=== PATIENT | female | born 1980 | race Caucasian/White ===

== ENCOUNTER 2020-10-07 18:35 | Emergency (ER) | payer OTHER ==
[~2020-10-07 18:35] MED LIST: PREDNISONE20 MG PO; SYMBICORT 80-10.2 GM INH; VENTOLIN HFA 66.7 GM INH
[2020-10-07 19:42] LABS: HEMOGLOBIN 15.2 gm/dl (12.3-15.3); RED BLOOD COUNT 4.65 M/UL (4.00-5.10); WHITE BLOOD COUNT 5.4 K/UL (4.5-11.0)
[2020-10-07 20:23] LABS: BUN/CREATININE RATIO 15 (0-10)
== END 2020-10-07 23:05 | disposition left against medical advice (07) ==
LOC: ER1 18:35
PROVIDERS: Physician Assistant
DX: U07.1 COVID-19 (principal); I10 Essential (primary) hypertension; F17.200 Nicotine dependence, unspecified, uncomplicated; Z91.040 Latex allergy status
CPT/HCPCS: 80053; 82550; 82553; 83874; 84484; 85025; 85379; 93005; 99283

== ENCOUNTER 2020-10-10 09:16 | Observation (INO) | payer OTHER ==
[~2020-10-10] VITALS: Ht 175.3 cm; Wt 123.4 kg
[2020-10-10 11:47] LABS: HEMOGLOBIN 13.5 gm/dl (12.3-15.3); RED BLOOD COUNT 4.36 M/UL (4.00-5.10)
[2020-10-10 11:54] LABS: WHITE BLOOD COUNT 7.9 K/UL (4.5-11.0)
[2020-10-10 12:07] LABS: BUN/CREATININE RATIO 18 (0-10)
[2020-10-11 03:56] LABS: HEMOGLOBIN 13.5 gm/dl (12.3-15.3); RED BLOOD COUNT 4.17 M/UL (4.00-5.10); WHITE BLOOD COUNT 7.6 K/UL (4.5-11.0)
[2020-10-11 04:27] LABS: BUN/CREATININE RATIO 13 (0-10)
[2020-10-11] MEDS ORDERED: BRILINTA 90 MG90 MG PO (09:13)
[2020-10-11] MEDS ORDERED: ATORVASTATIN CA20 MG PO (09:13)
[2020-10-11] MEDS ORDERED: AMLODIPINE BESYL5 MG PO ×2 (09:13→10:36)
[2020-10-11] MEDS ORDERED: NICOTINE PATCH1 EAC5 TD ×2 (09:13→10:37)
[2020-10-11] MEDS ORDERED: NITROGLYCERIN0.4 MG SL ×2 (09:13→10:35)
[2020-10-11] MEDS ORDERED: FENOFIBRATE145 MG PO (09:13)
[2020-10-11] MEDS ORDERED: ASPIRIN EC81 MG PO ×2 (09:13→10:33)
[2020-10-11] MEDS ORDERED: LOPRESSOR 50 MG50 MG PO (09:13)
[2020-10-11] MEDS ORDERED: METOPROLOL SUCC25 MG PO (10:29)
[2020-10-11] MEDS ORDERED: LOPRESSOR 50 MG50 MG GT (10:33)
[2020-10-11] MEDS ORDERED: TRICOR 145 MG145 MG GT (10:34)
[2020-10-11] MEDS ORDERED: LIPITOR TAB 2020 MG PO (10:36)
[2020-10-11] MEDS ORDERED: BRILINTA90 MG PO (10:37)
== END 2020-10-11 11:49 | disposition home or self-care (01) ==
LOC: ER1 09:16 → PROG CARE 14:52 → CDU 14:52 → PROG CARE 14:52
PROVIDERS: Nurse Practitioner; ADMIT Internal Medicine Cardiovascular Disease
PROC: 027034Z Dilation of Coronary Artery, One Artery with Drug-eluting Intraluminal Device, Percutaneous Approach (ICD-10-PCS; principal; 2020-10-10)
PROC: 02703ZZ Dilation of Coronary Artery, One Artery, Percutaneous Approach (ICD-10-PCS; 2020-10-10)
PROC: B2111ZZ Fluoroscopy of Multiple Coronary Arteries using Low Osmolar Contrast (ICD-10-PCS; 2020-10-10)
DX: I25.110 Atherosclerotic heart disease of native coronary artery with unstable angina pectoris (principal); I77.1 Stricture of artery; I10 Essential (primary) hypertension; E78.5 Hyperlipidemia, unspecified; F17.210 Nicotine dependence, cigarettes, uncomplicated; F12.90 Cannabis use, unspecified, uncomplicated; E66.9 Obesity, unspecified; Z68.36 Body mass index [BMI] 36.0-36.9, adult; Z86.16 Personal history of COVID-19; Z91.040 Latex allergy status; Z79.82 Long term (current) use of aspirin; Z79.899 Other long term (current) drug therapy; Z23 Encounter for immunization
CPT/HCPCS: ECHO; 36415; 71045; 80048; 80053; 80061; 82550; 82553; 83036; 83874; 84484; 84703; 85025; 85347; 85379; 93005; 93306; 99152; 99153; 99283; 99285; C1725; C1769; C1874; C1887; C1894; C9600; G0378; J0461; J1644; J2250; J2370; J3010; J3246; J7040; Q9965; Q9967; U0002

== ENCOUNTER 2021-03-06 21:53 | Emergency (ER) | payer OTHER ==
[~2021-03-06 21:53] MED LIST changes: +AMLODIPINE BESYL5 MG PO; +ASPIRIN EC81 MG PO; +ATORVASTATIN CA20 MG PO; +BRILINTA 90 MG90 MG PO; +BRILINTA90 MG PO; +FENOFIBRATE145 MG PO; +LIPITOR TAB 2020 MG PO; +LOPRESSOR 50 MG50 MG GT; +LOPRESSOR 50 MG50 MG PO; +METOPROLOL SUCC25 MG PO; +NICOTINE PATCH1 EAC5 TD; +NITROGLYCERIN0.4 MG SL; +TRICOR 145 MG145 MG GT
[2021-03-06 22:38] LABS: HEMOGLOBIN 13.2 gm/dl (12.3-15.3); RED BLOOD COUNT 4.35 M/UL (4.00-5.10); WHITE BLOOD COUNT 8.2 K/UL (4.5-11.0)
[2021-03-06 23:12] LABS: BUN/CREATININE RATIO 17 (0-10)
== END 2021-03-07 01:06 | disposition home or self-care (01) ==
LOC: ER1 21:53
PROVIDERS: Physician Assistant
DX: R30.0 Dysuria (principal); R59.1 Generalized enlarged lymph nodes; R10.9 Unspecified abdominal pain; I25.2 Old myocardial infarction; F17.200 Nicotine dependence, unspecified, uncomplicated; Z91.040 Latex allergy status
CPT/HCPCS: 80053; 81001; 84703; 85025; 87086; 96374; 96375; 99284; J1885; J2270; J2405

== ENCOUNTER 2021-03-24 21:37 | Emergency (ER) | payer OTHER ==
[2021-03-24 22:07] LABS: HEMOGLOBIN 14.2 gm/dl (12.3-15.3); RED BLOOD COUNT 4.65 M/UL (4.00-5.10); WHITE BLOOD COUNT 8.7 K/UL (4.5-11.0)
[2021-03-24 23:09] LABS: BUN/CREATININE RATIO 13 (0-10)
== END 2021-03-25 02:30 | disposition left against medical advice (07) ==
LOC: ER1 21:37
PROVIDERS: Family Medicine
DX: R07.9 Chest pain, unspecified (principal); R06.02 Shortness of breath; Z20.822 Contact with and (suspected) exposure to COVID-19; R11.2 Nausea with vomiting, unspecified; Z91.040 Latex allergy status; Z95.1 Presence of aortocoronary bypass graft; F17.210 Nicotine dependence, cigarettes, uncomplicated
CPT/HCPCS: 0240U; 71045; 80053; 82550; 82553; 83874; 84484; 85025; 93005; 99283

== ENCOUNTER 2021-04-14 08:20 | Observation (INO) | payer OTHER ==
[~2021-04-14] VITALS: Ht 177.8 cm; Wt 113.4 kg
[~2021-04-14 08:20] MED LIST changes: -LOPRESSOR 50 MG50 MG GT; -TRICOR 145 MG145 MG GT
[2021-04-14 09:08] LABS: HEMOGLOBIN 12.2 gm/dl (12.3-15.3); WHITE BLOOD COUNT 7.9 K/UL (4.5-11.0)
[2021-04-14 09:36] LABS: BUN/CREATININE RATIO 15 (0-10)
[2021-04-14] MEDS ORDERED: LOPRESSOR 50 MG50 MG PO (10:33)
[2021-04-14] MEDS ORDERED: TRICOR 145 MG145 MG PO (10:34)
[2021-04-14] MEDS ORDERED: PROAIR HFA8.5 GM INH (12:40)
[2021-04-14] MEDS ORDERED: PLAVIX75 MG PO (12:41)
[2021-04-14] MEDS ORDERED: PROTONIX20 MG PO (12:41)
[2021-04-14] MEDS ORDERED: ALEVE220 MG PO (12:42)
[2021-04-15 03:56] LABS: HEMOGLOBIN 12.1 gm/dl (12.3-15.3); RED BLOOD COUNT 3.98 M/UL (4.00-5.10); WHITE BLOOD COUNT 8.6 K/UL (4.5-11.0)
[2021-04-15 04:13] LABS: BUN/CREATININE RATIO 16 (0-10)
[2021-04-15] MEDS ORDERED: ISOSORBIDE MONO30 MG PO (10:10)
[2021-04-15] MEDS ORDERED: BRILINTA 90 MG90 MG PO (10:11)
== END 2021-04-15 12:13 | disposition home or self-care (01) ==
LOC: ER1 08:20 → CDU 10:16 → MED SURG 4 16:07
PROVIDERS: Emergency Medicine; Physician Assistant Medical; ADMIT Internal Medicine
DX: I25.119 Atherosclerotic heart disease of native coronary artery with unspecified angina pectoris (principal); R07.81 Pleurodynia; Z20.822 Contact with and (suspected) exposure to COVID-19; I10 Essential (primary) hypertension; E78.5 Hyperlipidemia, unspecified; J45.909 Unspecified asthma, uncomplicated; F12.10 Cannabis abuse, uncomplicated; F17.210 Nicotine dependence, cigarettes, uncomplicated; I25.2 Old myocardial infarction; Z79.02 Long term (current) use of antithrombotics/antiplatelets; Z79.82 Long term (current) use of aspirin; Z79.899 Other long term (current) drug therapy; Z91.040 Latex allergy status; Z95.5 Presence of coronary angioplasty implant and graft
CPT/HCPCS: ECHO; 36415; 71045; 80048; 80053; 82550; 82553; 83735; 84484; 85025; 85027; 93005; 93306; 94664; 94760; 96374; 99285; G0378; J2270; U0002

== ENCOUNTER 2021-04-27 15:28 | Emergency (ER) | payer OTHER ==
[~2021-04-27 15:28] MED LIST changes: +ALEVE220 MG PO; +ISOSORBIDE MONO30 MG PO; +PLAVIX75 MG PO; +PROAIR HFA8.5 GM INH; +PROTONIX20 MG PO; +TRICOR 145 MG145 MG PO
[2021-04-27 17:22] LABS: HEMOGLOBIN 13.4 gm/dl (12.3-15.3); RED BLOOD COUNT 4.36 M/UL (4.00-5.10); WHITE BLOOD COUNT 8.1 K/UL (4.5-11.0)
[2021-04-27] MEDS ORDERED: HYDROCODON-ACE1 EAC4 PO (19:21)
[2021-04-27] MEDS ORDERED: ZOFRAN ODT 4 MG4 MG SL (19:21)
== END 2021-04-27 19:30 | disposition home or self-care (01) ==
LOC: ER1 15:28
PROVIDERS: Emergency Medicine
DX: N93.9 Abnormal uterine and vaginal bleeding, unspecified (principal); I25.2 Old myocardial infarction; I25.10 Atherosclerotic heart disease of native coronary artery without angina pectoris; F17.200 Nicotine dependence, unspecified, uncomplicated
CPT/HCPCS: 84703; 85025; 96374; 99284; J1170

== ENCOUNTER 2021-07-07 12:14 | Emergency (ER) | payer OTHER ==
[~2021-07-07 12:14] MED LIST changes: +HYDROCODON-ACE1 EAC4 PO; +ZOFRAN ODT 4 MG4 MG SL
[2021-07-07 14:31] LABS: RED BLOOD COUNT 3.99 M/UL (4.00-5.10); WHITE BLOOD COUNT 7.3 K/UL (4.5-11.0)
[2021-07-07 14:56] LABS: BUN/CREATININE RATIO 10 (0-10)
== END 2021-07-07 18:07 | disposition home or self-care (01) ==
LOC: ER1 12:14
PROVIDERS: Physician Assistant
DX: R60.0 Localized edema (principal); I25.2 Old myocardial infarction; J44.9 Chronic obstructive pulmonary disease, unspecified; F17.210 Nicotine dependence, cigarettes, uncomplicated; E78.5 Hyperlipidemia, unspecified; Z20.822 Contact with and (suspected) exposure to COVID-19; I10 Essential (primary) hypertension; Z95.5 Presence of coronary angioplasty implant and graft; Z91.010 Allergy to peanuts; Z88.8 Allergy status to other drugs, medicaments and biological substances
CPT/HCPCS: 0240U; 71045; 80053; 81001; 82550; 82553; 83605; 83690; 83880; 84484; 84703; 85025; 85379; 96374; 99285; J1885

== ENCOUNTER 2021-08-26 19:24 | Emergency (ER) | payer OTHER ==
[2021-08-26] MEDS ORDERED: HYDROCODON-ACE1 EAC4 PO (21:22)
== END 2021-08-26 21:40 | disposition home or self-care (01) ==
LOC: ER1 19:24
DX: M54.2 Cervicalgia (principal); R07.81 Pleurodynia; R51.9 Headache, unspecified; R07.9 Chest pain, unspecified; I11.9 Hypertensive heart disease without heart failure; E78.5 Hyperlipidemia, unspecified; F17.200 Nicotine dependence, unspecified, uncomplicated; Z79.02 Long term (current) use of antithrombotics/antiplatelets; Z91.040 Latex allergy status; Z88.8 Allergy status to other drugs, medicaments and biological substances; W01.198A Fall on same level from slipping, tripping and stumbling with subsequent striking against other object, initial encounter
CPT/HCPCS: 70450; 72125; 96372; 99283; J1885

== ENCOUNTER → 2021-08-26 | Outpatient (CLI) | payer OTHER | LOC: KOH-I 11:27 | DX: M54.2 Cervicalgia (principal); R07.81 Pleurodynia; M47.812 Spondylosis without myelopathy or radiculopathy, cervical region | CPT/HCPCS: 71101; 72040 ==

== ENCOUNTER 2021-09-27 16:46 | Emergency (ER) | payer OTHER ==
[2021-09-27 18:01] LABS: HEMOGLOBIN 13.8 gm/dl (12.3-15.3); RED BLOOD COUNT 4.57 M/UL (4.00-5.10); WHITE BLOOD COUNT 10.6 K/UL (4.5-11.0)
[2021-09-27] MEDS ORDERED: VALIUM 2 MG TAB2 MG PO (18:43)
== END 2021-09-27 19:45 | disposition home or self-care (01) ==
LOC: ER1 16:46
PROVIDERS: Emergency Medicine
DX: F41.9 Anxiety disorder, unspecified (principal); I11.9 Hypertensive heart disease without heart failure; Z95.5 Presence of coronary angioplasty implant and graft; F17.200 Nicotine dependence, unspecified, uncomplicated
CPT/HCPCS: 70450; 71045; 80048; 84484; 85025; 93005; 99284

== ENCOUNTER → 2021-10-25 | Outpatient (CLI) | payer OTHER ==
[~2021-10-25] MED LIST changes: +VALIUM 2 MG TAB2 MG PO
== END ==
LOC: KOH-I 10:42
DX: M54.50 Low back pain, unspecified (principal); M47.816 Spondylosis without myelopathy or radiculopathy, lumbar region
CPT/HCPCS: 72100